=== PATIENT | female | born 1950 | race Caucasian/White ===

== ENCOUNTER 2022-05-03 15:38 | Outpatient (CLI) | payer MEDICARE, BC, SELFPAY ==
[2022-05-03 14:13] LABS: Chloride* 103 mmol/L (96-114)
[2022-05-03 14:14] LABS: Albumin* 4.3 g/dL (3.3-5.0); Sodium* 139 mmol/L (135-149)
[2022-05-03 14:17] LABS: Alkaline Phosphatase* 98 U/L (40-150); Aspartate Amino Transferase* 26 U/L (12-35); Blood Urea Nitrogen* 13 mg/dL (7-30); Carbon Dioxide* 34 mmol/L (20-32); Cholesterol* 177 mg/dL (90-199); Creatinine* 0.8 mg/dL (0.5-1.5); Estimated Glomerular Filt Rate 80 ml/min; Total Protein* 6.9 g/dL (6.0-8.3)
[2022-05-03 14:18] LABS: Alanine Aminotransferase* 21 U/L (4-35); Calcium* 9.1 mg/dL (8.4-10.6); Glucose* 101 mg/dL (60-115); HDL Cholesterol* 57 mg/dL (>=50); LDL Cholesterol Calculated 82 mg/dL (<100); Triglycerides* 191 mg/dL (40-149)
== END 2022-05-03 15:39 | disposition home or self-care (01) ==
PROVIDERS: PCP Internal Medicine; Visit Provider Internal Medicine
DX: J45.909 Unspecified asthma, uncomplicated (principal); I10 Essential (primary) hypertension
CPT/HCPCS: 80053; 80061

== ENCOUNTER 2023-05-05 08:30 | Outpatient (CLI) | payer MEDICARE, BC, SELFPAY ==
--- OUTSIDE RECORDS SUMMARY | 2023-05-07 12:38 | XMS_ITS | Continuity of Care Document ---
Author Name Unknown Organization Z [facility] Address [address] [place] [address] [address] [place] [id number] Phone Care Team Providers Care Pharmacy Messenger Name Role Phone Unavailable Unavailable Unavailable Medications Medication Instructions Dosage Effective Dates (start - stop) Status Comments Naprosyn 500 mg Tab One twice daily - Active Procedures Procedure Date Office consultation, moderate 6 X-ray exam lower spine 2-3 views 2005 Advance Directives Directive Yes / No Effective Date File Name No Information Encounters Encounter Description Practice Location Reason(s) For Visit Diagnoses Date Provider Providers Copied on Encounter Z [facility], [address] [place] [address], [facility], tel:[phone] [employer] No Information 8 No Information Office consultation, moderate Z [facility] [place], [address] [place] [address], [facility], tel:[phone] [employer] No Information 6 Transfeldt Ensor. [facility], [address] [place] [address], [address], [id number], [place]. tel:[phone] Family History Family Member Type Diagnosis Age At Onset No Information Payers Payer name Insurance type Covered republican ID Authorzoea althea(s) [facility] [id number] BL [id number] Social History Type Description Quantity Date Captured Comments Sex Female Smoking Status No Information Chief Complaint And Reason For Visit No Information Reason For Referral Reason For Referral No Information History Of Present Illness Encounter Date Complaint History Of Prese nt Illness No Information Functional Status Date Functional Assessmen t No Information Instructions Date Instruction Additional Infor mation No Information Assessments Type Assessment Date No Information Patient Care Teams Name Effective Dates (start - stop) Status Members No Information
== END 2023-05-05 08:31 | disposition home or self-care (01) ==
LOC: NFLDREF 05-07 12:36
PROVIDERS: PCP Internal Medicine; Referring Provider Internal Medicine; Visit Provider Internal Medicine
DX: I10 Essential (primary) hypertension (principal); E78.2 Mixed hyperlipidemia; F41.9 Anxiety disorder, unspecified; F32.A Depression, unspecified; J45.909 Unspecified asthma, uncomplicated; Z13.9 Encounter for screening, unspecified; Z23 Encounter for immunization
CPT/HCPCS: 80053; 80061

== ENCOUNTER 2023-07-29 13:07 | Outpatient (CLI) | payer MEDICARE, SELFPAY ==
--- NOTE | 2023-07-29 13:20 | CRLHL7_ITS ---
For Patients: As a result of the Century Cures Act, medical imaging exams and procedure reports are released immediately into your electronic medical record. You may view this report before your referring provider. If you have questions, please contact your health care provider. BILATERAL SCREENING MAMMOGRAM WITH COMPUTER-AIDED DETECTION AND TOMOSYNTHESIS TECHNIQUE: CC and MLO views were obtained. These mammographic images have been obtained using full-field digital technique. These mammographic images were interpreted with the benefit of computer-aided detection. Breast Tomosynthesis was used in this interpretation. COMPARISON FILM: 04/22/19, 04/15/19, 11/28/15. FINDINGS: There are scattered areas of fibroglandular density IMPRESSION: There is no radiographic evidence for malignancy. ASSESSMENT: BI-RADS Category 1: Negative RECOMMENDATION: Routine screening mammogram in 1 year. A lay language report of this examination will be provided to the patient. Be Richard M.D. Diagnostic Radiologist [email or web address] JULIO CESAR/Dictated by: Be Richard MD @ 07/31/2023 12:45:00 PM (Electronically Signed)
== END 2023-07-29 13:08 | disposition home or self-care (01) ==
LOC: MAMMO 13:09
PROVIDERS: PCP Internal Medicine; Visit Provider Internal Medicine
DX: Z12.31 Encounter for screening mammogram for malignant neoplasm of breast (principal)
CPT/HCPCS: 77063; 77067

== ENCOUNTER 2023-12-11 07:30 | Outpatient (RCR) | payer MEDICARE, SELFPAY ==
--- NOTE | 2023-10-31 16:03 | PT.OPEX ---
PT [place] Outpatient Eval PT [facility] Outpatient Eval Start: 10/31/23 08:54 Freq: Status: Active Protocol: Document 10/31/23 08:54 CRP (Rec: 10/31/23 15:50 CRP [id number]) E-signed By David Reyes PT Physical Therapy Outpatient Evaluation Insurance Information Recert Due Date 01/29/24 Insurance Name [facility] Medical Diagnosis LBP Treating Diagnosis LBP SI pain Back stiffness Referring MD Dr Franco Subjective Subjective Pt has had years of SI region pain. In the last couple of months pain has increased and it has been more and more painful moving in bed. Stated more L sided pain but now more recently has been R side as well. Going sit to stand and rolling in bed is most painful. Prolonged standing is fine and some times getting up moving is more helpful than not. Can be uncomfortable trying to get to sleep because of an aching pain. 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 Current Work Status Retired Objective Other/Pertinent Objective Posture: active ext pattern Trunk ROM: flex WNL - no lumbar reversal. Ext Mod dec with LBP. R SB WNL, L SB min dec with L LBP. R rot mod dec, L rot Mod dec Hip ROM: WNL bilat. Some LBP on the release of L hip flex. SLR negative bilat MMT: Myotomes WNL Sensation: intact to light touch Segmental testing: Shows decreased segmental sagittal plane motion Assessment Assessment/Impression Pt presents to the clinic with chronic LBP and pain into bilat SI region. 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 Skilled PT is necessary to address the above issues with incorporation of ther ex, [place] ludy, ther act, manual therapy and pt education. Plan of Care Rehabilitation Potential Excellent Physical Therapy Goals 1. Pt will be independent with HEP in 6 weeks. 2. Pt will go sit to stand without pain in 10 weeks. 3. Pt will load firewood with 80% decrease in pain in 12 weeks. Coordination/Communication With Referral Source Treatment Plan/Direct Interventions Joint Mobilization,Manual Therapy,Neuromuscular Re-ed, Self-Care/Home Management, Therapeutic Activities, Therapeutic Exercises Frequency/Duration 1-2x/wk for 12 weeks. Patient Will Be Discharged From Therapy Completion of LTG(s),Skills Plateau,Independent w/HEP, Independently Progressing Evaluation Billing Untimed Code Treatment Minutes 30 Complexity Moderate Certification Information Initial Certification Date 10/31/23 Ending Certification Date 01/29/24 Provider Signature Shows Agreement With POC & Medical Necessity Physician Signature & Date Requested Please Sign/Date Here Physician Comment/Change : Physician NPI Number #
== END 2024-04-09 23:59 | disposition home or self-care (01) ==
PROVIDERS: PCP Internal Medicine; Visit Provider Internal Medicine
DX: M54.9 Dorsalgia, unspecified (principal); Z51.89 Encounter for other specified aftercare
CPT/HCPCS: 97110; 97140; 97162

== ENCOUNTER 2024-05-18 08:33 | Outpatient (CLI) | payer MEDICARE, SELFPAY ==
--- OUTSIDE RECORDS SUMMARY | 2024-05-18 17:16 | XMS_ITS | Continuity of Care Document ---
Author Organization Z [facility] Address [address] [place] [address] [address] [place] [address] Phone Care Team Providers Care Honing Machine Operator Tool Name Role Phone Unavailable Unavailable Unavailable Medications [...] Date Provider Providers Copied on Encounter Z [facility], [address] [place] [address], [facility], tel:[phone] [employer] No Information 8 No Information Office consultation, moderate Z [facility] [place], [address] [place] [address], [facility], tel:[phone] [employer] No Information 6 Transfeldt Ensor. [facility], [address] [place] [address], [place] [address], [place], [place], [id number], [place]. tel:[phone] Family History Family Member Type Diagnosis Age At Onset No Information Payers Payer name Insurance type Covered libertarian ID Authoriza timarycarmen(s) [facility] [id number] BL [id number] Social History Type Description Quantity Date Captured [...]
--- OUTSIDE RECORDS SUMMARY | 2024-05-18 17:16 | XMS_ITS | Clinical Summary ---
Author Organization [place] Address [address] [place] [address]. [place] [address] Care Team Providers Care Radiological Defense Officer Name Role Phone No Ref-Primary, Physician Primary Care Provider Allergies No known active allergies Medications Medication Sig Dispensed Refills Start Date End Date Status amLODIPine (NORVASC) 10 MG tablet Take 10 mg by mouth daily 3 03/30/2019 Active buPROPion (WELLBUTRIN XL) 300 MG 24 hr tablet Take 300 mg by mouth daily 1 04/30/2019 Active simvastatin (ZOCOR) 40 MG tablet Take 1 and 1/2 tablets by mouth at bedtime. 3 05/19/2019 Active olopatadine (PATANOL) 0.1 % ophthalmic solutionIndications:Acut e conjunctivitis of left eye, unspecified acute conjunctivitis type Place 1 drop Into the left eye 2 times daily 5 mL 06/06/2019 Active Social History Tobacco Use Types Packs/Day Years Used Date Smoking Tobacco: Never Smokeless Tobacco: Never Alcohol Use Standard Drinks/Week Comments Yes 0 (1 standard drink = 0.6 oz pur e alcohol) Sex and Gender Information Value Date Recorded Sex Assigned at Not on file Gender Identity Not on file Sexual Orientation Not on file Last Filed Vital Signs Vital Sign Reading Time Taken Comments Blood Pressure 126/72 06/06/2019 1:21 PM CDT Pulse 93 06/06/2019 1:21 PM CDT Temperature 36.8 ??C (98.3 ??F) 06/06/2019 1:21 PM CD T Respiratory Rate 16 06/06/2019 1:21 PM CDT Oxygen Saturation 98% 06/06/2019 1:21 PM CDT Inhaled Oxygen Concentration - - Weight 65.3 kg (144 lb) 06/06/2019 1:21 PM CDT Height 154.9 cm (5' 1) 06/06/2019 1:21 PM CDT Body Mass Index 27.21 06/06/2019 1:21 PM CDT Plan of Treatment Not on file Care Teams Radiological Defense Officer Relationship Specialty Start Date End Date No Ref-Primary, Physician PCP - General 06/06/19
--- OUTSIDE RECORDS SUMMARY | 2024-05-18 17:16 | XMS_ITS | Referral Summary ---
Author Organization [place] Address [address] [place] [address]. [place] [address] Care Team Providers Care Crusher Name Role Phone No Ref-Primary, Physician Primary [...] of Treatment Not on file Care Teams Crusher Relationship Specialty Start Date End Date No Ref-Primary, Physician PCP - General 06/06/19
== END 2024-05-18 08:34 | disposition home or self-care (01) ==
LOC: NFLDREF 17:15
PROVIDERS: PCP Internal Medicine; Referring Provider Internal Medicine; Visit Provider Internal Medicine
DX: E78.2 Mixed hyperlipidemia (principal); I10 Essential (primary) hypertension
CPT/HCPCS: 80053; 80061

== ENCOUNTER 2024-07-30 07:37 | Outpatient (CLI) | payer MEDICARE, SELFPAY ==
--- OUTSIDE RECORDS SUMMARY | 2024-07-30 07:39 | XMS_ITS | Clinical Summary ---
Author Organization [place] Address [address] [place] [address]. [place] [address] Care Team Providers Care Alum Mixer Name Role Phone No Ref-Primary, Physician Primary Care Provider Allergies No known active allergies Medications amLODIPine (NORVASC) 10 MG tablet Take 10 mg by mouth daily 3 9 Active buPROPion (WELLBUTRIN XL) 300 MG 24 hr tablet Take 300 mg by mouth daily 1 9 Active simvastatin (ZOCOR) 40 MG tablet Take 1 and 1/2 tablets by mouth at bedtime. 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
--- OUTSIDE RECORDS SUMMARY | 2024-07-30 07:39 | XMS_ITS | Continuity of Care Document ---
Author Organization Z [facility] Address [address] [place] [address] [address] [place] [address] Phone Care Team Providers Care Needle Setter Name Role Phone Unavailable Unavailable Unavailable Medications [...] Date Provider Providers Copied on Encounter Z [facility], [address] [place] [address], [facility], tel:[phone] [employer]edu No Information 8 No Information Office consultation, moderate Z [facility] [place], [address] [place] [address], [facility], tel:[phone] [employer]edu No Information 6 Transfeldt Ensor. [facility], [address] [place] [address], [place] [address], [place], [place], [id number], [place]. tel:[phone] Family History Family Member Type Diagnosis Age At Onset No Information Payers Payer name Insurance type Covered democrat ID Authoriza timarycarmen(s) [facility] [id number] BL [id number] Social History Type Description Quantity Date Captured [...]
--- OUTSIDE RECORDS SUMMARY | 2024-07-30 07:39 | XMS_ITS | Referral Summary ---
Author Organization [place] Address [address] [place] [address]. 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
--- NOTE | 2024-07-30 07:45 | CRLHL7_ITS ---
For Patients: As a result of the Cures Act, medical imaging exams and procedure reports are released immediately into your electronic medical record. You may view this report before your referring provider. If you have questions, please contact your health care provider. BILATERAL SCREENING MAMMOGRAM WITH COMPUTER-AIDED DETECTION AND TOMOSYNTHESIS TECHNIQUE: CC and MLO views were obtained. These mammographic images have been obtained using full-field digital technique. These mammographic images were interpreted with the benefit of computer-aided detection. Breast Tomosynthesis was used in this interpretation. COMPARISON FILM: 07/29/23, 04/15/19, 11/28/15. FINDINGS: There are scattered areas of fibroglandular density IMPRESSION: There is no radiographic evidence for malignancy. ASSESSMENT: BI-RADS Category 1: Negative RECOMMENDATION: Routine screening mammogram in 1 year. A lay language report of this examination will be provided to the patient. Be Richard M.D. Diagnostic Radiologist [email or web address] PER/geraldine / bM/Dictated by: Be Richard MD @ 07/30/2024 10:09:00 AM (Electronically Signed)
== END 2024-07-30 07:38 | disposition home or self-care (01) ==
PROVIDERS: PCP Internal Medicine; Visit Provider Internal Medicine
DX: Z12.31 Encounter for screening mammogram for malignant neoplasm of breast (principal)
CPT/HCPCS: 77063; 77067

== ENCOUNTER 2025-06-16 10:00 | Outpatient (CLI) | payer MEDICARE, BC, SELFPAY | END 2025-06-16 10:01 | disposition home or self-care (01) | LOC: NFLDREF 06-22 08:34 | PROVIDERS: PCP Internal Medicine; Referring Provider Internal Medicine; Visit Provider Internal Medicine | DX: E78.2 Mixed hyperlipidemia (principal); I10 Essential (primary) hypertension | CPT/HCPCS: 80053; 80061 ==